=== PATIENT | female | born 2000 | race Caucasian/White ===

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

== ENCOUNTER 2025-01-28 06:31 | Emergency (ER) | payer OTHER ==
[~2025-01-28] VITALS: Ht 157.5 cm; Wt 49.4 kg
[2025-01-28] MEDS ORDERED: BENZONATATE 200 MG CAPSULE PO ONE (08:00)
[2025-01-28 09:39] LABS: BASO % 0.5 % (0.1-1.2); EOS # 0.16 (0.04-0.54); EOS % 1.6 % (0.7-7.0); LYMPH # 1.79 (1.18-3.74); LYMPH % 18.0 % (19.3-53.1); MONO # 0.80 (0.24-0.82); MONO % 8.0 % (4.7-12.5); NEUT # 7.10 (1.56-6.13); NEUT % 71.5 % (34.0-71.1); RED CELL DISTRIBUTION WIDTH 20.0 % (11.6-14.4)
[2025-01-28 10:50] LABS: COVID-19 AG NEGATIVE (NEGATIVE)
[2025-01-28 11:57] VITALS: BP 118/72; O2SAT 100
== END 2025-01-28 11:58 | disposition home or self-care (01) ==
LOC: ER 06:32
PROVIDERS: Emergency Medicine
DX: R05.8 Other specified cough (principal); Z88.1 Allergy status to other antibiotic agents; Z87.09 Personal history of other diseases of the respiratory system; E88.01 Alpha-1-antitrypsin deficiency; J02.8 Acute pharyngitis due to other specified organisms; B34.9 Viral infection, unspecified; Z20.822 Contact with and (suspected) exposure to COVID-19